=== PATIENT | female | born 1990 | race American Indian/Alaskan Native ===

== ENCOUNTER 2021-04-13 09:25 | Emergency (ER) | payer OTHER ==
[2021-04-13 10:07] VITALS: BP 158/98
--- NOTE | 2021-04-13 10:18 | Emergency Department Report ---
Blank Doc - Documentation Documentation: 30-year-old female that presents with abdominal pain and N/V. 1- This is a initial triage assessment/medical screening only. Full assessment and work-up will be completed once the patient is in proper hospital gown, ED bed and in a private room setting. This initial assessment/diagnostic orders/clinical plan/ treatment(s) is/are subject to change based on pt's health status, clinical progression and re-assessment by fellow clinical providers in the ED. Further treatment and workup at subsequent clinical providers discretion. Patient/guardians urged not to elope from ED as their condition may be serious if not clinically assessed and managed. 2-labs/UA
[2021-04-13 10:52] LABS: Basophils % (Auto) 0.2 % (0.0-1.8); Eosinophils % (Auto) 0.2 % (0.0-4.3); Hematocrit 44.2 % (30.3-42.9); Hemoglobin 14.9 gm/dl (10.1-14.3); Lymphocytes # (Auto) 1.5 K/mm3 (1.2-5.4); Lymphocytes % (Auto) 7.7 % (13.4-35.0); Mean Corpuscular HGB Conc 34 % (30-34); Mean Corpuscular Volume 92 fl (79-97); Monocytes # (Auto) 0.8 K/mm3 (0.0-0.8); Monocytes % (Auto) 4.2 % (0.0-7.3); Platelet Count 233 K/mm3 (140-440); Red Blood Count 4.82 M/mm3 (3.65-5.03); Red Cell Distribution Width 13.6 % (13.2-15.2)
[2021-04-13 11:01] LABS: Bilirubin,Urine NEG (Negative); Blood,Urine NEG (Negative); Color,Urine Yellow (Yellow); Protein,Urine <15 mg/dL mg/dL (Negative); RBC,Urine < 1.0 /HPF (0.0-6.0); Urobilinogen,Urine < 2.0 mg/dL (<2.0); WBC,Urine < 1.0 /HPF (0.0-6.0)
[2021-04-13 11:01] LABS: Alanine Aminotransferase 13 units/L (7-56); Albumin 4.4 g/dL (3.9-5); Blood Urea Nitrogen 15 mg/dL (7-17); Calcium 9.8 mg/dL (8.4-10.2); Hemolysis Index 24
[2021-04-13 11:02] LABS: BUN/Creatinine Ratio 21
[2021-04-13] MEDS ORDERED: ONDANSETRON 4 MG/2 ML INJ IV ONE (11:25)
[2021-04-13] MEDS ORDERED: SODIUM CHLORIDE 0.9% 1000 ML 1,000 ML IV ONE (11:25)
--- NOTE | 2021-04-13 11:31 | Emergency Department Report ---
ED Abdominal Pain HPI - General Chief Complaint: Nausea/Vomiting/Diarrhea Stated Complaint: SEVERE STOMACH PAINS/ VOMITING/ ASHLEY. Time Seen by Provider: 04/13/21 10:11 Source: patient Mode of arrival: Ambulatory Limitations: No Limitations - History of Present Illness Initial Comments: 30-year-old -[place] female presents to the emergency room for nausea vomiting diarrhea at the onset of this morning. Patient states she has had 2 episodes of diarrhea while being here in the emergency room and one episode of vomiting. Patient states she thinks she has food poisoning as she ate some chicken wings last night. Patient is a diabetic but did not take her medications this morning. She does report her symptoms are improving. She denies any dysuria no vaginal discharge no epigastric discomfort no fever no chills. Has not drinking any alcohol. Occasionally smokes marijuana but has not smoked yesterday or today. Last menstrual period 03/22/2021. 0. Complaint: abdominal pain -: This morning Location: diffuse Radiation: none Migration to: no migration Severity scale (0 -10): 9 Quality: cramping Consistency: intermittent Improves With: nothing Context: possible food poisoning Associated Symptoms: nausea, vomiting, diarrhea. denies: chills - Related Data LMP Date: 03/22/21 Allergies Allergy/AdvReac Type Severity Reaction Status Date / Time No Known Allergies Allergy Unverified 04/13/21 11:27 ED Review of Systems ROS: Stated complaint: SEVERE STOMACH PAINS/ VOMITING/ ASHLEY. Other details as noted in HPI Comment: All other systems reviewed and negative ED Past Medical Hx - Past Medical History Previous Medical History?: Yes Hx Diabetes: Yes - Surgical History Past Surgical History?: Yes Additional Surgical History: Pilonidal cyst - Social History Smoking Status: Never Smoker Substance Use Type: Alcohol, Marijuana ED Physical Exam - General Limitations: No Limitations General appearance: alert, in no apparent distress - Head Head exam: Present: atraumatic, normocephalic - Eye Eye exam: Present: normal appearance - ENT ENT exam: Present: mucous membranes moist - Neck Neck exam: Present: normal inspection, full ROM - Respiratory Respiratory exam: Present: normal lung sounds bilaterally. Absent: accessory muscle use - Cardiovascular Cardiovascular Exam: Present: regular rate - GI/Abdominal GI/Abdominal exam: Present: soft. Absent: distended, tenderness, guarding - Back Exam Back exam: Present: normal inspection, full ROM - Neurological Exam Neurological exam: Present: alert, normal gait - Psychiatric Psychiatric exam: Present: normal affect, normal mood - Skin Skin exam: Present: warm, dry, intact, normal color. Absent: rash ED Course Vital Signs 04/13/21 10:02 Temperature 97.8 F Pulse Rate 92 H Respiratory 16 Rate Blood Pressure 158/98 O2 Sat by Pulse 100 Oximetry - Reevaluation(s) Reevaluation #1: 04/13/21 14:05 Patient reports she feels much better after having fluids. She denies any further vomiting or diarrhea. ED Medical Decision Making - Lab Data Result diagrams: 04/13/21 10:20 04/13/21 10:20 - Medical Decision Making 30-year-old -[place] female presents to the emergency room for nausea vomiting diarrhea at the onset of this morning. Patient states she has had 2 episodes of diarrhea while being here in the emergency room and one episode of vomiting. Patient states she thinks she has food poisoning as she ate some chicken wings last night. Patient is a diabetic but did not take her medications this morning. She does report her symptoms are improving. She denies any dysuria no vaginal discharge no epigastric discomfort no fever no chills. Has not drinking any alcohol. Occasionally smokes marijuana but has not smoked yesterday or today. Last menstrual period 03/22/2021. 0. CBC CMP lipase urinalysis and urine test was ordered and obtained. Patient's blood sugar is elevated at greater than 300, she seems to be hemoconcentrated. Lipase is within normal limits. Will initiate fluids Zofran and Levsin. Critical care attestation.: If time is entered above; I have spent that time in minutes in the direct care of this critically ill patient, excluding procedure time. ED Disposition Clinical Impression: Gastroenteritis Disposition: DC-01 TO HOME OR SELFCARE Is pt being admited?: No Does the pt Need Aspirin: No Condition: Stable Instructions: Viral Gastroenteritis, Adult, [id number] Additional Instructions: Please increase your fluid intake. Be sure to take your Metformin for your diabetes. Follow-up with your primary care provider. Forms: Work/School Release Form(ED) Time of Disposition: 14:06
[2021-04-13] MEDS ORDERED: HYOSCYAMINE SUBL 0.125 MG TAB SL ONE (11:34)
== END 2021-04-13 14:19 | disposition home or self-care (01) ==
LOC: ED 09:25
DX: K52.9 Noninfective gastroenteritis and colitis, unspecified (principal); E11.9 Type 2 diabetes mellitus without complications; F12.90 Cannabis use, unspecified, uncomplicated; Z72.89 Other problems related to lifestyle; Z79.899 Other long term (current) drug therapy
CPT/HCPCS: 36415; 80053; 81001; 83690; 84703; 85025; 96361; 96374; 99283; J2405; J7030